=== PATIENT | male | born 1965 | race Caucasian/White ===

== ENCOUNTER 2020-07-18 00:04 | Emergency (ER) | payer BC, OTHER ==
[2020-07-18 00:53] VITALS: BP 155/91; PULSE 96; TEMP 99.1; BMI 35.4
[2020-07-18] MEDS ORDERED: TETRACAINE 0.5% HCL 0.6ML DROPPER.BOTTLE OS ONE (01:06)
[2020-07-18] MEDS ORDERED: FLUORESCEIN NA 1 EA STRIP OU ONE (01:06)
[2020-07-18] MEDS ORDERED: TETRACAINE 0.5% OPHTH SOLN 2 ML BOTTLE ONE (01:09)
[2020-07-18] MEDS ORDERED: FLUORESCEIN NA 1 EA STRIP ONE (01:10)
[2020-07-18] MEDS ORDERED: ERYTHROMYCIN 0.5% OPHTHALMIC OINTMENT 3.5 GM TUBE OS ONE (02:40)
[2020-07-18] MEDS ORDERED: ERYTHROMYCIN 0.5% OPHTHALMIC OINTMENT 3.5 GM TUBE ONE (03:03)
== END 2020-07-18 03:21 | disposition home or self-care (01) ==
LOC: JER 00:04
DX: H11.422 Conjunctival edema, left eye (principal)
CPT/HCPCS: 99283-25; C9803; U0003

== ENCOUNTER 2024-06-12 13:16 | Emergency (ER) | payer SELFPAY ==
[2024-06-12 13:31] VITALS: BMI 33.5
[2024-06-12] MEDS ORDERED: ACETAMINOPHEN 500 MG TABLET (FP) ONE (15:13)
[2024-06-12 15:19] LABS: BASO % 0.4 % (0-2.0); EOS % 0.6 % (0-4.5); HEMATOCRIT 43.8 % (35.4-49); HEMOGLOBIN 14.4 GM/dL (11.7-16.9); MCH 29.9 pg (25.7-33.7); MCHC 32.8 g/dl (32.0-35.9); MEAN CELL VOLUME 90.9 fl (80-96); MEAN PLT VOLUME 9.8 fl (7.5-11.1); MONO % 6.8 % (3.8-10.2); NEUT % 78.2 % (42.8-82.8); PLATELET COUNT 315 10^3/uL (134-434); RBC 4.81 M/mm3 (4.00-5.60); RDW 12.5 % (11.9-15.9)
[2024-06-12] MEDS: ACETAMINOPHEN 500 MG TABLET (FP) PO ONE (15:20)
[2024-06-12 15:31] LABS: POTASSIUM 4.2 mmol/L (3.5-5.1)
[2024-06-12 15:33] LABS: ALBUMIN 3.6 g/dl (3.4-5.0); BLOOD UREA NITROGEN 6.8 mg/dL (7-18); CALCIUM 8.9 mg/dL (8.5-10.1)
[2024-06-12 15:36] LABS: CREATININE 0.8 mg/dL (0.55-1.3)
[2024-06-12 15:38] LABS: BILIRUBIN,TOTAL 0.9 mg/dL (0.2-1); TOT PROT 7.9 g/dl (6.4-8.2)
[2024-06-12 15:44] LABS: LACTIC ACID 2.3 mmol/L (0.4-2.0)
[2024-06-12 16:08] LABS: URINE APPEARANCE CLOUDY; URINE BILIRUBIN NEGATIVE (NEGATIVE); URINE COLOR YELLOW; URINE GLUCOSE (UA) 3+ (NEGATIVE); URINE KETONE 2+ (NEGATIVE); URINE LEUK ESTERASE NEGATIVE (NEGATIVE); URINE NITRITE NEGATIVE (NEGATIVE); URINE PROTEIN NEGATIVE (NEGATIVE)
[2024-06-12] MEDS: SODIUM CHLORIDE 0.9% 500 ML INFUS.BAG IV ONE (17:07)
[2024-06-12 18:58] VITALS: BP 148/77; PULSE 102; RESP 17; TEMP 98.5
== END 2024-06-12 19:07 | disposition home or self-care (01) ==
LOC: JER 13:16
DX: K62.89 Other specified diseases of anus and rectum (principal); K59.00 Constipation, unspecified
CPT/HCPCS: 0241U-QW; 36415; 71045-TC-FY; 74174-TC; 80053; 81003; 82272; 83605; 83735; 85025; 86850; 86900; 86901; 87086; 93005; 93010; 99285-25; Q9967